=== PATIENT | female | born 1995 | race African-American/Black ===

== ENCOUNTER 2017-04-23 10:00 | Emergency (ER) | payer MEDICAID ==
[~2017-04-23] VITALS: Ht 167.6 cm; Wt 110.0 kg
[2017-04-23 12:59] VITALS: BP 135/78
[2017-04-23] MEDS ORDERED: FAMOTIDINE 20MG TABLET PO ONE (13:00)
[2017-04-23] MEDS ORDERED: PREDNISONE 20MG TABLET PO ONE (13:00)
[2017-04-23] MEDS ORDERED: DIPHENHYDRAMINE 50MG CAPSULE PO ONE (13:00)
== END 2017-04-23 13:49 | disposition home or self-care (01) ==
LOC: ER 10:28
DX: L50.9 Urticaria, unspecified (principal); L08.89 Other specified local infections of the skin and subcutaneous tissue
CPT/HCPCS: 81025; 99284; J7512; Z7610; Q0163